=== PATIENT | male | born 1960 | race Caucasian/White ===

== ENCOUNTER 2019-03-29 09:55 | Emergency (ER) | payer SELFPAY ==
[~2019-03-29] VITALS: Ht 185.4 cm; Wt 122.0 kg
[2019-03-29 10:37] LABS: BILIRUBIN NEGATIVE (NEGATIVE); BLOOD 3+ (NEGATIVE); CLARITY CLOUDY (CLEAR); COLOR RED (YELLOW); GLUCOSE NEGATIVE (NEGATIVE); KETONE 1+ (NEGATIVE); LEUKO ESTERASE 3+ (NEGATIVE); NITRITE POSITIVE (NEGATIVE); UROBILINOGEN 0.2 E.U./dl (0.2-1.0)
[2019-03-29 10:47] LABS: RBC TNTC rbc/hpf (0-2); WBC 21-30 wbc/hpf (0-5)
[2019-03-29 10:49] LABS: BASO % 0.5 % (0.0-1.0); EOS # 0.2 10*3/uL (0.0-0.4); EOS % 2.3 % (1.0-4.0); HEMATOCRIT 41.8 % (42.0-52.0); HEMOGLOBIN 13.6 g/dl (14.0-18.0); LYMPH # 1.6 10*3/uL (1.3-4.4); LYMPH % 21.2 % (27.0-41.0); MEAN CELL VOLUME 95.9 fl (80.0-94.0); MEAN CORPUSCULAR HGB 31.2 pg (27.0-31.0); MEAN CORPUSCULAR HGB CONC 32.5 g/dl (33.0-37.0); MEAN PLATELET VOLUME 10.5 fl (9.6-12.3); MONO # 0.5 10*3/uL (0.1-1.0); MONO % 7.1 % (3.0-9.0); NEUT % 68.6 % (47.0-73.0); PLATELET COUNT AUTOMATED 202 10*3/uL (130-400); RED BLOOD COUNT 4.36 10*6/uL (4.50-5.90); RED CELL DISTRI WIDTH 13.2 % (0-14.5); WHITE BLOOD COUNT 7.3 10*3/uL (4.8-10.8)
[2019-03-29 11:05] LABS: ALBUMIN 3.4 gm/dl (3.1-4.5); CREATININE 1.55 mg/dL (0.70-1.30); POTASSIUM 4.2 mmol/L (3.5-5.1); TOTAL PROTEIN 6.9 gm/dL (6.4-8.2)
== END 2019-03-29 13:30 | disposition short-term general hospital (02) ==
LOC: ED 09:55
PROVIDERS: Physician Assistant
DX: N13.2 Hydronephrosis with renal and ureteral calculous obstruction (principal); R31.9 Hematuria, unspecified

== ENCOUNTER 2021-05-05 18:34 | Emergency (ER) | payer SELFPAY ==
[~2021-05-05] VITALS: Ht 185.4 cm; Wt 136.1 kg
[2021-05-05] MEDS ORDERED: PREDNISONE20 M1 PO (20:34)
[2021-05-05] MEDS ORDERED: ZITHROMAX250 MG PO (20:34)
== END 2021-05-05 20:55 | disposition home or self-care (01) ==
LOC: ED 18:34
DX: J40 Bronchitis, not specified as acute or chronic (principal); Z88.1 Allergy status to other antibiotic agents; I10 Essential (primary) hypertension; E11.9 Type 2 diabetes mellitus without complications; J44.9 Chronic obstructive pulmonary disease, unspecified

== ENCOUNTER 2021-05-11 20:16 | Emergency (ER) | payer SELFPAY ==
[~2021-05-11] VITALS: Ht 185.4 cm; Wt 136.1 kg
[~2021-05-11 20:16] MED LIST: PREDNISONE20 M1 PO; ZITHROMAX250 MG PO
[2021-05-11] MEDS ORDERED: LISINOPRIL10 M1 PO (20:36)
[2021-05-11 22:53] LABS: BASO % 0.2 % (0.0-1.0); EOS # 0.1 10*3/uL (0.0-0.4); EOS % 0.9 % (1.0-4.0); HEMATOCRIT 40.3 % (42.0-52.0); LYMPH # 1.4 10*3/uL (1.3-4.4); LYMPH % 23.5 % (27.0-41.0); MEAN CELL VOLUME 93.7 fl (80.0-94.0); MEAN CORPUSCULAR HGB 30.2 pg (27.0-31.0); MEAN CORPUSCULAR HGB CONC 32.3 g/dl (33.0-37.0); MEAN PLATELET VOLUME 9.7 fl (9.6-12.3); MONO # 0.4 10*3/uL (0.1-1.0); MONO % 6.7 % (3.0-9.0); NEUT % 67.7 % (47.0-73.0); PLATELET COUNT AUTOMATED 218 10*3/uL (130-400); RED CELL DISTRI WIDTH 14.5 % (0-14.5); WHITE BLOOD COUNT 5.9 10*3/uL (4.8-10.8)
[2021-05-11 23:00] LABS: BILIRUBIN Negative (Negative); BLOOD 3+ (Negative); CLARITY Clear (Clear); COLOR Yellow (Yellow); GLUCOSE 1+ (Negative); KETONE Trace (Negative); LEUKO ESTERASE Negative (Negative); NITRITE Negative (Negative)
[2021-05-11 23:11] LABS: CREATININE 1.78 mg/dL (0.70-1.30); POTASSIUM 4.4 mmol/L (3.5-5.1); TOTAL PROTEIN 7.4 gm/dL (6.4-8.2)
[2021-05-11 23:38] LABS: BACTERIA 1+; RBC 21-30 rbc/hpf (0-2)
[2021-05-12] MEDS ORDERED: CIPRO500 MG PO (00:22)
[2021-05-12] MEDS ORDERED: FLOMAX0.4 MG PO (00:22)
[2021-05-12] MEDS ORDERED: IBUPROFEN600 MG PO (00:22)
[2021-05-12] MEDS ORDERED: HYDROCODONE-AC1 EAC1 PO (00:28)
== END 2021-05-12 00:39 | disposition home or self-care (01) ==
LOC: ED 20:16
PROVIDERS: Physician Assistant
DX: N13.2 Hydronephrosis with renal and ureteral calculous obstruction (principal); Z88.1 Allergy status to other antibiotic agents; Z87.442 Personal history of urinary calculi; Z79.899 Other long term (current) drug therapy

== ENCOUNTER 2024-11-12 16:21 | Emergency (ER) | payer SELFPAY ==
[~2024-11-12] VITALS: Ht 185.4 cm; Wt 136.1 kg
[~2024-11-12 16:21] MED LIST changes: +CIPRO500 MG PO; +FLOMAX0.4 MG PO; +HYDROCODONE-AC1 EAC1 PO; +IBUPROFEN600 MG PO; +LISINOPRIL10 M1 PO
[2024-11-12] MEDS ORDERED: GLIPIZIDE5 MG PO (16:55)
[2024-11-12] MEDS ORDERED: METFORMIN XR500 MG PO (16:55)
[2024-11-12] MEDS ORDERED: NAPROSYN500 MG PO (17:36)
== END 2024-11-12 17:48 | disposition home or self-care (01) ==
LOC: ED 16:21
DX: M79.672 Pain in left foot (principal); Z79.899 Other long term (current) drug therapy; Z79.84 Long term (current) use of oral hypoglycemic drugs